=== PATIENT | male | born 1960 | race Native Hawaiian/Other Pacific Islander ===

== ENCOUNTER 2020-06-11 14:33 | Emergency (ER) | payer OTHER ==
[~2020-06-11] VITALS: Ht 177.8 cm; Wt 119.3 kg
[2020-06-11 16:55] VITALS: BP 152/87; TEMP 98.2
== END 2020-06-11 16:55 | disposition home or self-care (01) ==
LOC: ED 14:33
PROC: 2W3CX1Z Immobilization of Right Lower Arm using Splint (ICD-10-PCS; principal; 2020-06-11)
DX: S60.211A Contusion of right wrist, initial encounter (principal); S63.591A Other specified sprain of right wrist, initial encounter; W22.8XXA Striking against or struck by other objects, initial encounter; Y92.89 Other specified places as the place of occurrence of the external cause
CPT/HCPCS: 96372; 99282; 99283; J1885

== ENCOUNTER 2022-09-22 20:08 | Emergency (ER) | payer OTHER ==
[~2022-09-22] VITALS: Ht 177.8 cm; Wt 117.9 kg
[2022-09-22 20:34] VITALS: TEMP 99.1
[2022-09-22 21:52] LABS: PLATELET COUNT 71 K/uL (142-355)
[2022-09-23 03:40] VITALS: BP 132/81
== END 2022-09-23 03:40 | disposition short-term general hospital (02) ==
LOC: ED 20:08
PROVIDERS: Family Medicine
DX: N13.2 Hydronephrosis with renal and ureteral calculous obstruction (principal)
CPT/HCPCS: 80053; 80307; 81002; 83605; 85027; 87502; 96361; 96365; 96366; 96374; 96375; 96376; 99285; J0132; J2405; J2543